=== PATIENT | female | born 1990 | race Caucasian/White ===

== ENCOUNTER 2018-10-24 04:26 | Emergency (ER) | payer SELFPAY ==
[~2018-10-24] VITALS: Ht 160 cm; Wt 57.0 kg
[2018-10-24 04:28] VITALS: BP 114/78
--- NOTE | 2018-10-24 04:48 | NUR ---
first contact with pt. pt etoh. pt states "i need a place to stay because i'm not able to get back to my room." pt denies any pain. pt's aox4. resps even and unlabored.
--- NOTE | 2018-10-24 05:31 | NUR ---
[facility] pt lost keys/id. this rn called hotel and hotel ok'd to open room door for pt, when pt gets there. taxi voucher provided. edmd explained and pt agreed.
--- NOTE | 2018-10-24 05:40 | NUR ---
pt given dc instructions. pt amb to dc with steady gait. no acute distress at dc.
== END 2018-10-24 05:41 | disposition home or self-care (01) ==
LOC: ED 05:07
DX: F10.120 Alcohol abuse with intoxication, uncomplicated (principal)
CPT/HCPCS: 99281